=== PATIENT | female | born 1955 | race Two or more races ===

== ENCOUNTER 2017-10-09 12:45 | Outpatient (CLI) | payer OTHER | END 2017-10-09 16:20 | disposition home or self-care (01) | LOC: RAD 501 12:45 | DX: M54.5 Low back pain (principal) ==

== ENCOUNTER 2018-02-05 21:08 | Emergency (ER) | payer OTHER ==
[~2018-02-05] VITALS: Ht 170.2 cm; Wt 72.6 kg
[2018-02-05] MEDS ORDERED: SYNTHROID75 MCG PO (21:38)
[2018-02-06] MEDS ORDERED: ZANTAC300 MG PO (06:57)
[2018-02-06] MEDS ORDERED: PROMETHAZINE HC25 MG PO (06:57)
== END 2018-02-06 07:17 | disposition home or self-care (01) ==
LOC: ER 21:08
DX: T61.91XA Toxic effect of unspecified seafood, accidental (unintentional), initial encounter (principal); K52.1 Toxic gastroenteritis and colitis; Y92.89 Other specified places as the place of occurrence of the external cause

== ENCOUNTER → 2018-08-07 | Emergency (ER) | payer OTHER ==
[~2018-08-07] VITALS: Ht 157.5 cm; Wt 60.8 kg
[~2018-08-07] MED LIST: PROMETHAZINE HC25 MG PO; SYNTHROID75 MCG PO; ZANTAC300 MG PO
== END | disposition home or self-care (01) ==
LOC: ER 20:22
DX: R53.81 Other malaise (principal); D72.828 Other elevated white blood cell count; B37.9 Candidiasis, unspecified

== ENCOUNTER → 2018-11-01 | Day surgery (SDC) | payer OTHER | END | disposition home or self-care (01) | LOC: ADM 10-31 08:00 → CIR.AMB 08:00 | DX: E65 Localized adiposity (principal); L72.0 Epidermal cyst; N65.1 Disproportion of reconstructed breast ==

== ENCOUNTER → 2019-04-08 14:22 | Outpatient (CLI) | payer OTHER | END | disposition home or self-care (01) | LOC: LAB 14:22 | DX: J11.81 Influenza due to unidentified influenza virus with encephalopathy (principal); J06.9 Acute upper respiratory infection, unspecified ==

== ENCOUNTER 2021-05-10 08:41 | Emergency (ER) | payer OTHER ==
[~2021-05-10] VITALS: Ht 152.4 cm; Wt 54.4 kg
[2021-05-10] MEDS ORDERED: LIOTHYRONINE SO5 MCG PO (09:49)
[2021-05-10] MEDS ORDERED: SYNTHROID100 MCG PO (09:49)
== END 2021-05-10 13:11 | disposition home or self-care (01) ==
LOC: ER 08:41
DX: B34.9 Viral infection, unspecified (principal); Z03.818 Encounter for observation for suspected exposure to other biological agents ruled out

== ENCOUNTER 2022-05-24 14:54 | Outpatient (CLI) | payer OTHER ==
[~2022-05-24 14:54] MED LIST changes: +BENZONATATE200 M1 PO; +LIOTHYRONINE SO5 MCG PO; +SYNTHROID100 MCG PO; +SYNTHROID88 MCG PO; +ZIPSOR25 MG PO
== END 2022-05-24 16:00 | disposition home or self-care (01) ==
LOC: ASH CLINIC 14:54
PROVIDERS: ATTEND General Practice
DX: U07.1 COVID-19 (principal)

== ENCOUNTER 2022-12-09 12:41 | Emergency (ER) | payer OTHER ==
[~2022-12-09] VITALS: Ht 157.5 cm; Wt 54.4 kg
[2022-12-09] MEDS ORDERED: ADULT LOW DOSE81 M1 PO (14:18)
== END 2022-12-09 16:56 | disposition home or self-care (01) ==
LOC: ER 12:41
DX: U07.1 COVID-19 (principal); R53.81 Other malaise; E03.9 Hypothyroidism, unspecified

== ENCOUNTER 2023-01-05 14:45 | Emergency (ER) | payer OTHER ==
[~2023-01-05] VITALS: Ht 170.2 cm; Wt 54.4 kg
[~2023-01-05 14:45] MED LIST changes: +ADULT LOW DOSE81 M1 PO
== END 2023-01-05 16:53 | disposition home or self-care (01) ==
LOC: ER 14:45
DX: J06.9 Acute upper respiratory infection, unspecified (principal)

== ENCOUNTER 2023-02-04 11:43 | Emergency (ER) | payer OTHER ==
[~2023-02-04] VITALS: Ht 157.5 cm; Wt 54.4 kg
== END 2023-02-04 15:33 | disposition home or self-care (01) ==
LOC: ER 11:43
DX: B34.9 Viral infection, unspecified (principal); J40 Bronchitis, not specified as acute or chronic; E03.8 Other specified hypothyroidism

== ENCOUNTER 2023-09-25 15:18 | Emergency (ER) | payer OTHER ==
[~2023-09-25] VITALS: Ht 157.5 cm; Wt 60.8 kg
[2023-09-25 18:30] LABS: HEMATOCRIT 36.6 % (36.0-45.00); HEMOGLOBIN 12.4 g/dL (12.0-15.00); MEAN CELL VOLUME 86.6 fL (80.00-100.00); MEAN CORPUSCULAR HEMOGLOBIN 29.3 pg (27.00-32.0); MEAN CORPUSCULAR HGB CONC 33.8 g/dl (32.0-36.0); PLATELET COUNT 258 K/uL (150-450); RED BLOOD COUNT 4.23 M/uL (4.00-6.00); RED CELL DISTRIBUTION WIDTH 15.4 % (11.5-14.5)
[2023-09-25] MEDS ORDERED: NEO-POLY-DEXAMET5 ML OP (19:05)
[2023-09-25] MEDS ORDERED: MEDROLPACK PO (19:13)
== END 2023-09-25 19:19 | disposition home or self-care (01) ==
LOC: ER 15:18
PROVIDERS: Nurse Practitioner Family
DX: J02.8 Acute pharyngitis due to other specified organisms (principal); E03.9 Hypothyroidism, unspecified; Z20.822 Contact with and (suspected) exposure to COVID-19